=== PATIENT | male | born 1950 | race Caucasian/White ===

== ENCOUNTER 2021-02-15 18:08 | Emergency (ER) | payer OTHER ==
[~2021-02-15] VITALS: Ht 188 cm; Wt 78.5 kg
[2021-02-15] MEDS ORDERED: Acerola C500 MG PO (18:19)
[2021-02-15] MEDS ORDERED: ASPI81CH PO (18:19)
[2021-02-15] MEDS ORDERED: FERSU300 PO (18:20)
[2021-02-15] MEDS ORDERED: ATOR20 PO (18:20)
[2021-02-15] MEDS ORDERED: METO25ER PO (18:20)
[2021-02-15] MEDS ORDERED: OMEP20ER PO (18:21)
[2021-02-15] MEDS ORDERED: QUET25 PO (18:21)
[2021-02-15] MEDS ORDERED: Nortriptyline H50 MG PO (18:21)
[2021-02-15] MEDS ORDERED: Flomax0.4 MG PO (18:22)
[2021-02-15] MEDS ORDERED: SENNA LAXATIVE8.6 MG PO (18:22)
[2021-02-15] MEDS ORDERED: OXYC5 PO (18:23)
[2021-02-15 20:29] LABS: SARS-Cov-2 (COVID-19) PCR, MMC NEGATIVE (NEGATIVE)
--- NOTE | 2021-02-15 23:01 | NUR ---
PATIENT IN PACU WITH RN FROM [facility] STARTED AND THEN PATIENT MOVED TO STEP AFTER 15 MINUTES
--- NOTE | 2021-02-15 23:25 | NUR ---
PATIENT DRESSING AT THIS TIME. IV OUT WILL BE TRANSFERRED TO ER LOBBY TO AWAIT RIDE FOR DISCHARGE.
--- NOTE | 2021-02-15 23:36 | NUR ---
Discharge instructions reviewed with patient. Patient verbalizes understanding. Copy given to patient to take home. Patient States Post-Procedure ride home has been arranged. DISCHARGED TO [facility]
--- NOTE | 2021-02-17 08:15 | NUR ---
02/17/21 0815 Walt Ho See Anesthesia record. See Anesthesia record. History, Chart, Medications and Allergies reviewed before start of procedure. MONITOR INTACT WITH CONTINUOUS PULSE OXIMETRY AND INTERMITTENT BP. O2 VIA N/C INTACT THROUGHOUT SEDATION/PROCEDURE.
== END 2021-02-15 22:00 | disposition other institution (70) ==
LOC: ER 18:08
PROVIDERS: Emergency Medicine
DX: T18.128A Food in esophagus causing other injury, initial encounter (principal); Z20.822 Contact with and (suspected) exposure to COVID-19; Z79.82 Long term (current) use of aspirin; Z79.899 Other long term (current) drug therapy
CPT/HCPCS: 96374-59; 99284-25; J0330; J1610; J2370; J2405; J2704; J3010; J7120; U0004

== ENCOUNTER 2022-11-23 11:45 | Emergency (ER) | payer OTHER ==
[~2022-11-23] VITALS: Ht 175.3 cm; Wt 79.4 kg
[~2022-11-23 11:45] MED LIST: ASPI81CH PO; ATOR20 PO; Acerola C500 MG PO; FERSU300 PO; Flomax0.4 MG PO; METO25ER PO; Nortriptyline H50 MG PO; OMEP20ER PO; OXYC5 PO; QUET25 PO; SENNA LAXATIVE8.6 MG PO
[2022-11-23 12:04] LABS: BASOPHILS ABSOLUTE AUTO 0.06 K/mm3 (0.00-0.23); BASOPHILS PERCENT AUTO 1 % (0-2); EOSINOPHILS ABSOLUTE AUTO 0.06 K/mm3 (0.00-0.68); EOSINOPHILS PERCENT AUTO 1 % (0-6); Hematocrit 39.9 % (37.0-53.0); Hemoglobin 13.5 g/dL (13.5-17.5); IMMATURE GRAN ABSOLUTE AUTO 0.04 K/mm3 (0.00-0.10); IMMATURE GRAN PERCENT AUTO 0 % (0-1); LYMPHOCYTES ABSOLUTE AUTO 2.13 K/mm3 (0.84-5.20); LYMPHOCYTES PERCENT AUTO 16 % (21-46); MONOCYTES ABSOLUTE AUTO 1.09 K/mm3 (0.16-1.47); MONOCYTES PERCENT AUTO 8 % (4-13); Mean Corpuscular HGB 28.1 pg (26.0-34.0); Mean Corpuscular HGB Conc 33.8 g/dL (31.5-36.5); Mean Corpuscular Volume 83 fL (80-100); Mean Platelet Volume 8.7 fL (9.1-12.4); NEUTROPHILS ABSOLUTE AUTO 9.68 K/mm3 (1.96-9.15); NEUTROPHILS PERCENT AUTO 74 % (41-73); Platelet Count 328 K/mm3 (150-400); RDW Standard Deviation 42.7 fL (35.1-46.3); Red Blood Cell Count 4.81 M/mm3 (4.30-5.90); White Blood Cell Count 13.06 K/mm3 (4.00-11.30)
[2022-11-23 12:31] LABS: Albumin, Blood 3.8 g/dL (3.4-5.0); Albumin/Globulin Ratio 0.8 (0.8-1.8); Bilirubin, Total 0.7 mg/dL (0.1-1.0); Bun/Creatinine Ratio 23.4 (12.0-20.0); Calcium, Blood 9.3 mg/dL (8.5-10.1); Creatinine, Blood 0.9 mg/dL (0.60-1.20); Potassium, Blood 4.1 mmol/L (3.5-5.5); Total Protein, Blood 8.8 g/dL (6.4-8.2)
[2022-11-23 12:43] LABS: Source, Urine Voided
[2022-11-23 12:50] LABS: Appearance, Urine Clear (Clear); Bilirubin, Urine Neg (Neg); Blood, Urine 1+ (Neg); Color, Urine Yellow (P-Yellow); Glucose Qualitative, Urine Neg (Neg); Ketones, Urine Neg (Neg); Leukocyte Esterase, Urine Neg (Neg); Nitrite, Urine Neg (Neg); Protein, Urine 2+ (Neg); Urobilinogen, Urine NORM (Normal)
[2022-11-23 12:58] LABS: Bacteria Not Seen /hpf; Red Blood Cells, Urine 0-2 /hpf (0-2); Squamous Epithelial Cells Few /hpf (Few); White Blood Cells, Urine Not Seen /hpf (0-5)
[2022-11-23] MEDS ORDERED: BACL10 PO (14:19)
[2022-11-23] MEDS ORDERED: BENZ100A PO (14:21)
== END 2022-11-23 14:43 | disposition home or self-care (01) ==
LOC: ER 11:45
PROVIDERS: Emergency Medicine
DX: R25.2 Cramp and spasm (principal); I10 Essential (primary) hypertension; Z79.899 Other long term (current) drug therapy; Z79.82 Long term (current) use of aspirin
CPT/HCPCS: 36415; 71045; 74177; 80053; 81001; 83690; 85025; 93005; 93010; 96374-59; 96375; 99285-25; J2270; J2405; Q9967